=== PATIENT | female | born 1990 | race Hispanic/Latino ===

== ENCOUNTER 2020-05-20 20:11 | Inpatient (IN) | payer OTHER, MEDICAID ==
[2020-05-20] MEDS ORDERED: BUTORPHANOL 2 MG/1 ML INJ IV PRN (20:55)
[2020-05-20] MEDS ORDERED: ACETAMINOPHEN 325 MG TAB PO PRN (20:55)
[2020-05-20] MEDS ORDERED: MINERAL OIL 30 ML ORAL LIQD PO PRN (20:55)
[2020-05-20] MEDS ORDERED: TERBUTALINE 1 MG/1 ML INJ SUB-Q PRN (20:55)
[2020-05-20] MEDS ORDERED: PROMETHAZINE 25 MG TAB PO PRN (20:55)
[2020-05-20] MEDS ORDERED: ePHEDrine SULFATE 50 MG/1 ML INJ IV PRN (20:55)
--- NOTE | 2020-05-20 20:55 | History and Physical Report ---
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 no EDC Calculations LMP: 05/13/2020 EDC Confirmation: 05/13/2020 Past History : 2 Term Births: 1 Premature Births: 0 Living Children: 1 Para: 1 Mult. Births: 0 Prev : 0 Aborta: 0 Elect. Ab: 0 Spont. Ab: 0 Ectopics: 0 # 1 Delivery date: 06/22/2015 Weeks Gestation: term labor: no Delivery type: Delivery location: [facility] Sex: Female weight: 8#12 Past Medical History: Anxiety Past Surgical History: Negative Past Surgical History Past Medical History Surgery (Non-obstetrics gyn): Negative Past Surgical History Abnormal PAP: negative SEBASTIAN Exposure: negative Infertility: negative Uterine Anomaly: negative Uterine Surgery (not C/S): negative Other Gynecologic Problems: negative Family Hx: breast CA - mother, , dx age 40. 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 of genital herpes: no Partner hx. of genital herpes: no Rash, Viral, or Febrile illness since last LMP? no Varicella/Chicken Pox Status: Previous Disease Genetic History Congenital Heart Defect: Mom: no Dad: no Alyssa Disease: Mom: no Dad: no Thalassemia Mom: no Dad: no Neural Tube Defect Mom: no Dad: no Down's Syndrome Mom: no Dad: no James-Sachs Mom: no Dad: no Sickle Cell Disease/Trait Mom: no Dad: no Hemophilia Mom: no Dad: no Muscular Dystrophy Mom: no Dad: no Cystic Fibrosis Mom: no Dad: no [place] Chorea Mom: no Dad: no Mental Retardation Mom: no Dad: no Fragile X Mom: no Dad: no Other Genetic/Chromosomal Disorder Mom: no Dad: no Child w/other defect Mom: no Dad: no Enviromental Exposures Xray Exposure: no Medication, drug, or alcohol use since LMP: no Chemical/Other Exposure: no Exposure to Cat Liter: no Hx of Parvovirus (Fifth Disease): no Occupational Exposure to Children: none Current Allergies (reviewed today): No known allergies Past History Past Medical History: other (SEE HPI) Past Surgical History: other (SEE HPI) 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) Family/Genetic History: other (SEE HPI) Social history: full code, other (SEE HPI) - Obstetrical History Expected Date of Delivery: 05/13/20 Actual Gestation: 41 Week(s) 2 Day(s) : 2 Para: 1 Hx # Term Pregnancies: 1 Number of Pregnancies: 0 Spontaneous Abortions: 0 Induced : 0 Number of Living Children: 1 Medications and Allergies Allergies Allergy/AdvReac Type Severity Reaction Status Date / Time No Known Allergies Allergy Verified 05/20/20 22:49 Home Medications Medication Instructions Recorded Confirmed Last Taken Type Multivitamin Tablet 1 tab PO DAILY 05/20/20 05/20/20 05/19/20 History Ibuprofen [Motrin 800 MG tab] 800 mg PO TID PRN #30 tablet 05/22/20 Unknown Rx Review of Systems Psychiatric: anxiety - Physical Exam Breasts: Positive: deferred Cardiovascular: Regular rate Lungs: Positive: Normal air movement Abdomen: Positive: normal appearance Cervix: Positive: other (Per RN) Results Result Diagrams: 05/21/20 18:57 All other labs normal. Assessment and Plan - Patient Problems (1) Post-term with 40-42 completed weeks of gestation Current Visit: Yes Status: Acute Plan to address problem: Patient admitted for labor induction. The nature of serial induction was planed to the patient. We will place Cervidil for cervical ripening this p.m. with Pitocin IV induction scheduled for tomorrow morning. Informed the patient that the process could take up to 3 days. All questions answered.
[2020-05-20] MEDS ORDERED: OXYTOCIN DRIP 30 UNITS/500 ML BAG IV SCH (21:00)
[2020-05-20] MEDS ORDERED: LIDOCAINE (2%) 20 MG/1 ML VIAL 20 ML MDV INFILTRATI ONE (22:00)
[2020-05-20] MEDS ORDERED: DINOPROSTONE 10 MG VAG SUPP VG ONE (22:00)
[2020-05-20] MEDS: LACTATED RINGERS 1,000 ML IV SCH (22:48)
[2020-05-20 22:49] LABS: Hematocrit 37.7 % (30.3-42.9); Hemoglobin 13.1 gm/dl (10.1-14.3); Mean Corpuscular HGB Conc 35 % (30-34); Mean Corpuscular Volume 95 fl (79-97); Platelet Count 197 K/mm3 (140-440); Red Blood Count 3.98 M/mm3 (3.65-5.03); Red Cell Distribution Width 14.3 % (13.2-15.2)
[2020-05-21] MEDS ORDERED: fentaNYL 100 MCG/2 ML INJ IV PRN (04:55)
[2020-05-21] MEDS: LACTATED RINGERS 1,000 ML IV SCH (06:03)
[2020-05-21] MEDS ORDERED: miSOPROStol 100 MCG TAB ONE (06:28)
--- NOTE | 2020-05-21 06:52 | Procedure Note ---
OB Delivery Note - Delivery Date of Delivery: 05/21/20 Surgeon: REJI HARRISON Estimated blood loss: other (400 mL) - Vaginal Delivery presentation: vertex Delivery position: OA Intrapartum events: precipitous labor- <3hr, uterine atony Delivery monitor: external FHT, external uterine Route of delivery: Delivery placenta: spontaneous Delivery cord: 3 umbilical vessels Episiotomy: none Delivery laceration: none Anesthesia: none Delivery comments: The patient had rapid progression from 5 cm to complete complete +2 station. The patient had the urge to push and delivered a liveborn female infant with Apgars of 8 and 9 weight 9 pounds 1 ounce. After delivery of the head the shoulders delivered without difficulty. The infant was bulb suctioned and placed on the patient's abdomen. Cord clamping was delayed. The cord was clamped and cut x2. The placenta delivered spontaneously intact with a three- vessel cord. No lacerations were noted. After delivery of the placenta the patient was noted to have uterine atony. Uterine massage was performed and Cytotec 800 mcg were placed per rectum. Estimated blood loss 400 mL - Infant A at 1 minute: 8 at 5 minutes: 9 Infant Gender: Female (Weight 9 pounds 1 ounce)
[2020-05-21] MEDS ORDERED: CARBOPROST TROMETHAMINE 250 MCG/1 ML INJ IM PRN (07:27)
[2020-05-21] MEDS ORDERED: ACETAMINOPHEN 325 MG TAB PO PRN (07:27)
[2020-05-21] MEDS ORDERED: LOPERAMIDE 2 MG CAP PO PRN (07:27)
[2020-05-21] MEDS ORDERED: miSOPROStol 100 MCG TAB PR PRN (08:00)
[2020-05-21] MEDS ORDERED: BENZOCAINE/MENTHOL 20/0.5% TOP SPRAY 56 GM TP PRN (08:00)
[2020-05-21] MEDS ORDERED: WITCH HAZEL/ GLYCERIN PAD TP PRN (08:00)
[2020-05-21] MEDS ORDERED: IBUPROFEN 600 MG TAB PO SCH (08:00)
[2020-05-21] MEDS ORDERED: ACETAMINOPHEN 500 MG TAB PO PRN (08:00)
[2020-05-21] MEDS ORDERED: PROMETHAZINE 25 MG TAB PO PRN (08:00)
[2020-05-21] MEDS ORDERED: METHYLERGONOVINE MALEATE 0.2 MG/ML VIAL IM PRN (08:00)
[2020-05-21] MEDS ORDERED: OXYTOCIN DRIP 30 UNITS/500 ML BAG IV SCH (08:00)
[2020-05-21] MEDS ORDERED: diphenhydrAMINE 25 MG CAP PO PRN (08:00)
[2020-05-21] MEDS ORDERED: ONDANSETRON 4 MG/2 ML INJ IV PRN (08:00)
[2020-05-21] MEDS ORDERED: LANOLIN/ZINC/DIMETHICONE (LANSINOH) 7 GM TP PRN ×2 (08:00)
--- NOTE | 2020-05-21 08:53 | Event Note ---
Date: 05/21/20 (Pt doing well post delivery.) Pt delivered precipitously and was delivered by Dr. Mao. Pt is doing well. Fundus firm, minimal bleeding noted. No lacerations noted. No complaints of pain. Will transfer to mother baby once recovery is complete.
[2020-05-21] MEDS: IBUPROFEN 800 MG TAB PO SCH ×3 (11:55→23:24)
[2020-05-21] MEDS: DOCUSATE SODIUM 100 MG CAP PO SCH ×2 (12:09→23:24)
[2020-05-21] MEDS: PRENATAL VIT27-FE FUMARATE-FOLIC ACID VIT TAB PO SCH (12:09)
[2020-05-21 19:28] LABS: Hematocrit 32.7 % (30.3-42.9); Hemoglobin 11.1 gm/dl (10.1-14.3)
[2020-05-21] MEDS ORDERED: MAGNESIUM HYDROXIDE (MOM) ORAL LIQD UDC PO PRN (22:00)
[2020-05-22] MEDS: IBUPROFEN 800 MG TAB PO SCH ×2 (05:31→13:30)
[2020-05-22] MEDS ORDERED: TETANUS,DIPH,PERTUSS(ACELL) VACCINE 0.5 ML SYRINGE IM ONE (07:31)
--- NOTE | 2020-05-22 08:19 | Discharge Summary ---
Providers - Providers Date of Admission: 05/20/20 20:11 Date of discharge: 05/22/20 (pt desires d/c) Attending physician: SUDHAKAR CABRERA Primary care physician: SUDHAKAR CABRERA Hospitalization Reason for admission: induction of labor, IUP at term Delivery: Episiotomy: none Laceration: none Incision: normal Other procedures: none complications: none Discharge diagnosis: IUP at term delivered baby: female Hospital course: uncomplicated vaginal delivery Pt awake caring for NB VSS FF below umb Lochia small Perineum intact H&H Stable Doing well s/p vag delivery. P: d/c today with instructions RTO 4-6w for PP care. Condition at discharge: Good Disposition: DC-01 TO HOME OR SELFCARE - Discharge Diagnoses (1) Spontaneous vaginal delivery Status: Acute Comment: RTO 4-6weeks PP care Plan - Discharge Medications Prescriptions: Ibuprofen [Motrin 800 MG tab] 800 mg PO TID PRN #30 tablet PRN Reason: Pain - Provider Discharge Summary Activity: routine, no sex for 6 weeks, no heavy lifting 4 weeks, no strenuous exercise Diet: routine Instructions: routine Additional instructions: [] Smoking cessation referral if applicable(refer to patient education folder for contact #) [] Refer to [facility] Booklet Call your doctor immediately for: * Fever > 100.5 * Heavy vaginal bleeding ( >1 pad per hour) * Severe persistent headache * Shortness of breath * Reddened, hot, painful area to leg or breast * Drainage or odor from incision. * Keep incision clean and dry at all times and follow doctor's instructions regarding bathing/showering - Follow up plan Follow up: SUDHAKAR CABRERA MD [Primary Care Provider] - 6 Weeks (Congratulations! Please call [phone] to schedule your visit in 4-6 weeks. Motrin/ibuprofen for cramping pain. Call with any concerns.)
[2020-05-22 13:26] VITALS: BP 110/68
[2020-05-22] MEDS: DOCUSATE SODIUM 100 MG CAP PO SCH (13:30)
[2020-05-22] MEDS: PRENATAL VIT27-FE FUMARATE-FOLIC ACID VIT TAB PO SCH (13:30)
== END 2020-05-22 14:22 | disposition home or self-care (01) | DRG 807 ==
LOC: LD 20:11 → OB 05-21 10:01
PROVIDERS: ADMIT Obstetrics & Gynecology; ATTEND Obstetrics & Gynecology
PROC: 10E0XZZ Delivery of Products of Conception, External Approach (ICD-10-PCS; principal; 2020-05-21)
DX: O48.0 Post-term pregnancy (principal); Z37.0 Single live birth; O62.3 Precipitate labor; Z3A.41 41 weeks gestation of pregnancy; Z20.822 Contact with and (suspected) exposure to COVID-19
CPT/HCPCS: 36415; 59025; 59200; 85014; 85018; 85027; 86850; 86900; 86901; G0378; J0595; J2590; J3010; J7120; U0003